=== PATIENT | female | born 1970 | race Caucasian/White ===

== ENCOUNTER 2023-12-13 21:13 | Emergency (ER) | payer MEDICAID, SELFPAY ==
[2023-12-13 21:15] VITALS: BP 157/91; PULSE 74; RESP 18; TEMP 36.8; O2SAT 100; BMI 16.6
--- NOTE | 2023-12-13 21:45 | XR_ITS ---
PROCEDURE INFORMATION: Exam: XR Right Wrist Exam date and time: 12/13/2023 10:40 PM Age: 53 years old Clinical indication: Injury or trauma; Fall; Other: Pain TECHNIQUE: Imaging protocol: Radiologic exam of the right wrist. Views: 3 or more views. Total images: 3 COMPARISON: No relevant prior studies available. FINDINGS: Bones/joints: Mild osteopenia. No acute fracture or joint dislocation. Carpal alignment is well maintained. Mild degenerative change 1st carpometacarpal joint. Mild narrowing radiocarpal joint. Mild ulnar negative variance can lead to chronic wrist instability. No concerning bone lesions. No pathologic calcifications. Soft tissues: Mild soft tissue swelling. IMPRESSION: 1. No acute osseous abnormality. 2. Mild soft tissue swelling. 3. Mild chronic findings.
--- NOTE | 2023-12-13 22:42 | ED_ITS ---
Discharge Plan Disposition Patient Disposition: Home, Self-Care Chief Complaint: Extremity Injury, Upper Referrals Follow up/Referrals: Provider,Referral, [Primary Care Provider] - See instructions Activity Restrictions/Add. Instructions Additional Instructions/Restrictions: Your x-ray today did not show any fracture. It is likely that you sprained your wrist really bad. If symptoms are persistent in 10 days please get a repeat x- ray as some tiny cracks in your bones are sometimes not apparent on the initial x-ray. For pain please take Tylenol and ibuprofen as needed. Clinical Impressions Clinical Impression: Pain of wrist after trauma, Right wrist sprain Discharge ED Provider: Shankar Harris General Adult HPI General Chief complaint: Extremity Injury, Upper Stated complaint: AO 12/13/23 1830 Fell injury right wrist Time Seen by Provider: 12/13/23 21:35 Mode of Arrival: Ambulatory Source of Information: Patient Limitations: Physical Limitations Description of Symptoms (Recalled from ER Triage Doc. by RN): Patient presented to the ED for right wrist pain related to fall. Patient states she was getting out the truck and fell backwards and caught herself with her hand/wrist. Patient can move fingers and does not c/o tingling or decreased sensation; patient has pain shooting up her arm and rates pain 7/10. History of Present Illness HPI narrative: Patient is a 53-year-old female with no pertinent past medical history, right- handed who presents emergency department for evaluation of traumatic injury sustained in a fall. Patient tripped and suffered a mechanical fall backwards on her right hand causing severe wrist pain prior to arrival. Denies other trauma. No anticoagulants. Due to persistent symptoms she presents here for continued evaluation. Related Data Allergies Allergy/AdvReac Type Severity Reaction Status Date / Time ciprofloxacin [From Cipro] Allergy Severe Anaphylaxis Verified 12/13/23 21:44 metronidazole [From Flagyl] Allergy Severe Anaphylaxis Verified 12/13/23 21:44 [facility] Disclaimer: The information contained in this section may have been updated after the patient was seen, as this information can be updated by other users. Social History (Updated 12/13/23 @ 22:58 by Teddy Branch MD) Smoking Status: Current every day smoker alcohol intake: never current occupational status: other Travel in the last 8 weeks: None ROS Obtained: Yes Systems reviewed as appropriate & no additional complaints except as documented Physical Exam General General appearance: alert and other (Appearing in pain) Head Head exam: atraumatic and normocephalic Eye Eye exam: Present PERRL ENT ENT exam: Present mucous membranes moist Neck Neck exam: Present normal inspection Chest Chest inspection: Present normal inspection and symmetric chest wall rise Respiratory Respiratory exam: Absent respiratory distress Cardiovascular Cardiovascular exam: Present regular rate and normal rhythm Abdominal Exam Abdominal exam: Present soft Extremities Exam Extremities exam: Present other (Swelling and bruising as well as tenderness of the right wrist. Distally neurovascularly intact. Palpable right radial pulse. No tenderness over the right elbow, proximal forearm, proximal upper arm or shoulder.) Neurological Exam Neurological exam: Present alert Psychiatric Psychiatric exam: Present normal affect Skin Skin exam: Present warm and dry Medical Decision Making Kwaku Inquiry Pt receiving controlled substance: No Vital Signs: 12/13/23 21:15 Temperature 98.3 F Temperature Source Oral Pulse Rate [Left Brachial] 74 Respiratory Rate 18 Blood Pressure [Left Arm] 157/91 H Blood Pressure Mean [Left Arm] 113 02 Sat by Pulse Oximetry 100 Oxygen Delivery Method Room Air Orders (Tests/Meds): ED MEDICATIONS Discontinued Medications Generic Name Dose Route Start Last Admin Trade Name Freq PRN Reason Stop Dose Admin Acetaminophen 1,000 mg 12/13/23 22:42 12/13/23 22:44 Acetaminophen 500mg Tab PO 12/13/23 22:43 1,000 mg ONCE ONE Administration Ibuprofen 600 mg 12/13/23 22:42 12/13/23 22:58 Ibuprofen 600 Mg Tablet PO 12/13/23 22:43 Not Given ONCE ONE Oxycodone HCl 5 mg 12/13/23 22:42 12/13/23 22:44 Oxycodone 5mg Immediate Release Tablet PO 12/13/23 22:43 5 mg ONCE ONE Administration ORDERS Category Date Time Status Wrist XR right minimum 3 views [XR wrist RT min 3V] Exams 12/13/23 21:45 Completed Stat Medical Decision Narrative: In summary patient is a 53-year-old female with past medical history described above who presents emergency department for evaluation of traumatic injury sustained in a fall. Patient is hemodynamically stable nontoxic-appearing upon arrival, afebrile. Based on history and physical exam trauma survey will be conducted with plain film of the right wrist. Initial inventions include Tylenol, ibuprofen, oxycodone. X-ray informally interpreted by me, no significantly displaced fracture. Formal read shows no acute pathology. Given this patient will be given a cock up wrist splint for comfort is appropriate for discharge at this time. Critical Care Critical Care Time Critical Care Time: No
[2023-12-13] MEDS: OXYCODONE 5MG IMMEDIATE RELEASE TABLET 5 MG PO (22:44)
[2023-12-13] MEDS: ACETAMINOPHEN 500MG TAB 1000 MG PO (22:44)
--- NOTE | 2023-12-13 22:47 | PC.NURSE ---
Pt to RAD
[2023-12-13 23:11] VITALS: BP 138/78; PULSE 65; RESP 16; TEMP 36.8; O2SAT 99
--- NOTE | 2023-12-13 23:14 | PC.ADMIT ---
[email or web address] [facility] Admission Note: The patient,Sonja Rain,53 y/o, was given written information regarding hospital policies, unit procedures and contact persons. Patient's smoking status: Current every day smoker. Vital Signs - 8 hr 12/13/23 21:15 12/13/23 23:11 Temperature 98.3 F 98.2 F Pulse Rate 65 Pulse Rate [Left Brachial] 74 Respiratory Rate 18 16 Blood Pressure 138/78 Blood Pressure [Left Arm] 157/91 H 02 Sat by Pulse Oximetry 100 Oxygen Delivery Method Room Air Room Air
--- NOTE | 2023-12-13 23:14 | PC.NURSE ---
Right wrist placed in splint
== END 2023-12-13 23:17 | disposition home or self-care (01) ==
PROVIDERS: Emergency Provider Emergency Medicine
DX: S63.501A Unspecified sprain of right wrist, initial encounter (principal); M25.531 Pain in right wrist; F17.210 Nicotine dependence, cigarettes, uncomplicated; W19.XXXA Unspecified fall, initial encounter
CPT/HCPCS: 73110; 99283

== ENCOUNTER 2024-10-03 12:55 | Emergency (ER) | payer SELFPAY ==
--- NOTE | 2024-10-03 12:58 | ED_ITS ---
Discharge Plan Disposition Patient Disposition: Home, Self-Care Condition: Good Prescriptions Prescriptions: New amoxicillin-pot clavulanate 875-125 mg tablet 1 tab PO BID Qty: 20 0RF kiydehty-qsejuhiue-IL 3.5-10,000-1 mg/mL-unit/mL-% drops,suspension 4 drp otic (ear) Q8H 5 Days Qty: 10 0RF Referrals Follow up/Referrals: Tahmina Fernandez APRN [Nurse Practitioner] - See instructions (Possible perforated right tympanic membrane) Provider,Referral, [Primary Care Provider] - See instructions Activity Restrictions/Add. Instructions Additional Instructions/Restrictions: Please start utilizing the eardrops and taking the antibiotic when you get them today. Please call tomorrow and schedule your follow-up with ear nose and throat for possible perforated right eardrum. I recommend taking Tylenol alternating with Motrin every 4 hours for pain and symptomatic treatment. If you have any continued new or worsening signs or symptoms follow-up with your PCP return to the ER as needed. Clinical Impressions Clinical Impression: Acute otitis media of right ear with perforated tympanic membrane Otitis externa Qualifiers: Otitis externa type: unspecified type Chronicity: acute Laterality: right Qualified Code(s): H60.501 - Unspecified acute noninfective otitis externa, right ear Otitis media of left ear Qualifiers: Chronicity: acute Recurrence: non-recurrent Spontaneous tympanic membrane rupture: without spontaneous rupture Print Language Print Language: Yoruba Discharge ED Provider: Ian Bhandari General Adult HPI <MEGAN Garzon - Last Filed: 10/03/24 13:41> General Chief complaint: Ear Stated complaint: ear pain, bloody drainage in rt ear Time Seen by Provider: 10/03/24 12:58 History of Present Illness HPI narrative: Patient presents for bilateral ear pain sore throat and drainage from the right EAC. Patient reports that her throats been sore since Friday and she did have a brief episode of sharp pain in the right ear but since it is not hurt. The left continues to hurt. However when she woke up this morning she noticed drainage on her pillow and presented to the ER for evaluation. She denies any fever chills hemoptysis hematochezia melena nausea vomiting diarrhea. Patient is status post tonsillectomy Related Data Previous Rx's ?Medication ?Instructions ?Recorded amoxicillin 875 mg-potassium 1 tab PO BID #20 tabs 10/03/24 clavulanate 125 mg tablet uwykxmph-fduucdacp-spmcsuyhu 3.5 4 drp otic (ear) Q8H 5 days #10 mL 10/03/24 mg-10,000 unit/mL-1 % ear drops,susp Allergies Allergy/AdvReac Type Severity Reaction Status Date / Time ciprofloxacin (From Cipro) Allergy Severe Anaphylaxis Verified 12/13/23 21:44 metronidazole (From Flagyl) Allergy Severe Anaphylaxis Verified 12/13/23 21:44 PFSH <MEGAN Garzon - Last Filed: 10/03/24 13:41> [facility], [facility] Disclaimer: The information contained in this section may have been updated after the patient was seen, as this information can be updated by other users. Social History (Updated 12/13/23 @ 22:58 by Teddy Branch MD) Smoking Status: Current every day smoker alcohol intake: never current occupational status: other Travel in the last 8 weeks: None Have you lived/traveled outside [place] in past 30 days?: No Contact w/someone who lives/traveled outside [place] past 30 days?: No Exposure to someone with infectious disease in past 14 days?: No Do you have a fever (greater than 100.4 F or 38 C)?: No Have you tested positive for COVID-19: No Exposed to someone with COVID-19 in past 14 days?: No Do you have a sore throat?: No Do you have a cough?: No Do you have any weakness?: No Do you have any diarrhea?: No Are you experiencing any unusual bleeding?: Yes Do you have any muscle aches/pain?: No Do you have any abdominal pain?: No Are you experiencing loss of taste or smell?: No <MEGAN Garzon - Last Filed: 10/03/24 13:41> ROS Obtained: Yes Systems reviewed as appropriate & no additional complaints except as documented Physical Exam <MEGAN Garzon - Last Filed: 10/03/24 13:41> General General appearance: alert and in no apparent distress Respiratory Respiratory exam: Present normal lung sounds bilaterally Cardiovascular Cardiovascular exam: Present regular rate Neurological Exam Neurological exam: Present alert and oriented X3 Medical Decision Making <MEGAN Garzon - Last Filed: 10/03/24 13:41> Medical Records Medical records reviewed: Yes I reviewed the patient's medical records. Screening: Per USPSTF and CDC recommendations, given the prevalence of disease in our region, it is our hospital?s policy to screen for HIV and viral Hepatitis for all patients aged 18 and over and those with ongoing risk factors. Kwaku Inquiry Pt receiving controlled substance: No Vital Signs: 10/03/24 13:02 10/03/24 13:41 Temperature 98.5 F 98.5 F Temperature Source Oral Pulse Rate 87 Pulse Rate [Right] 96 H Respiratory Rate 18 16 Blood Pressure 151/87 H Blood Pressure [Right Arm] 151/87 H Blood Pressure Mean [Right Arm] 108 Blood Pressure Source [Right Arm] Automatic Cuff Blood Pressure Position [Right Arm] Sitting 02 Sat by Pulse Oximetry 95 Oxygen Delivery Method Room Air Lab Data Lab results reviewed: Yes I reviewed the patient's lab results. Lab Results 10/03/24 13:01: Group A Strep Rapid Negative Orders (Tests/Meds): ORDERS Category Date Time Status Strep Scrn Group A (Rapid) Stat Lab 10/03/24 13:01 Completed Strep Screen Confirmation Stat Micro 10/03/24 13:01 Received Medical Decision Narrative: In summary patient is a 4-year-old female who presents to the emergency department for evaluation of sore throat bilateral ear pain and drainage from the right ear. Patient is hemodynamically stable upon arrival, febrile. Difficult exam is remarkable for a bulging right tympanic movements erythematous as well normal EAC, the right EAC is wet with drainage and the tympanic is very erythematous however I am not unable to appreciate the entirety of the tympanic membrane due to the swelling in the external auditory canal. The posterior pharynx is erythematous due to tach what appears to be some exudate but she also has bilateral anterior cervical lymphadenopathy. Presents clinical bilateral to the bases without adventitious sounds. Differential diagnosis includes strep pharyngitis versus suppurative otitis media versus otitis externa versus perforated tympanic brain on the right. Initial workup will be conducted with strep swab. Initial interventions are deferred as patient is already taken Tylenol Motrin prior to arrival. Initial workup reviewed by me shows her strep screens negative. The possibility of a perforated tympanic membrane and bilateral otitis media patient will be discharged on both Augmentin and Cortisporin HC suspension. She is advised continue taking Tylenol Motrin for symptomatic and supportive care. I have referred her to ear nose and throat for ongoing follow-up and management of her possible right tympanic membrane perforation. Patient verbalized understanding and agreement. <Ian Bhandari MD - Last Filed: 10/03/24 14:10> Vital Signs: 10/03/24 13:02 10/03/24 13:41 Temperature 98.5 F 98.5 F Temperature Source Oral Pulse Rate 87 Pulse Rate [Right] 96 H Respiratory Rate 18 16 Blood Pressure 151/87 H Blood Pressure [Right Arm] 151/87 H Blood Pressure Mean [Right Arm] 108 Blood Pressure Source [Right Arm] Automatic Cuff Blood Pressure Position [Right Arm] Sitting 02 Sat by Pulse Oximetry 95 Oxygen Delivery Method Room Air Lab Data Lab Results 10/03/24 13:01: Group A Strep Rapid Negative Orders (Tests/Meds): ORDERS Category Date Time Status Strep Scrn Group A (Rapid) Stat Lab 10/03/24 13:01 Completed Strep Screen Confirmation Stat Micro 10/03/24 13:01 Received Medical Decision Narrative: In summary patient is a 4-year-old female who presents to the emergency department for evaluation of sore throat bilateral ear pain and drainage from the right ear. Patient is hemodynamically stable upon arrival, febrile. Difficult exam is remarkable for a bulging right tympanic movements erythematous as well normal EAC, the right EAC is wet with drainage and the tympanic is very erythematous however I am not unable to appreciate the entirety of the tympanic membrane due to the swelling in the external auditory canal. The posterior pharynx is erythematous due to tach what appears to be some exudate but she also has bilateral anterior cervical lymphadenopathy. Presents clinical bilateral to the bases without adventitious sounds. Differential diagnosis includes strep pharyngitis versus suppurative otitis media versus otitis externa versus perforated tympanic brain on the right. Initial workup will be conducted with strep swab. Initial interventions are deferred as patient is already taken Tylenol Motrin prior to arrival. Initial workup reviewed by me shows her strep screens negative. The possibility of a perforated tympanic membrane and bilateral otitis media patient will be discharged on both Augmentin and Cortisporin HC suspension. She is advised continue taking Tylenol Motrin for symptomatic and supportive care. I have referred her to ear nose and throat for ongoing follow-up and management of her possible right tympanic membrane pe rforation. Patient verbalized understanding and agreement. LARS attestation I was consulted by the LARS, and we discussed the complexity of problems being addressed. I approved the treatment and management plan for this patient's care in the emergency department, thus performing a substantial portion of the medical decision making. I examined the patient at bedside and agree with the diagnosis of otitis externa, possible right sided TM perforation and suppurative left-sided otitis media. Ian Bhandari MD Critical Care <MEGAN Garzon - Last Filed: 10/03/24 13:41> Critical Care Time Critical Care Time: No
[2024-10-03 13:02] VITALS: BP 151/87; PULSE 96; RESP 18; TEMP 36.9; O2SAT 95; BMI 20.5
[2024-10-03 13:31] LABS: Strep Scrn Group A (Rapid) Negative (Negative)
[2024-10-03 13:41] VITALS: BP 151/87; PULSE 87; RESP 16; TEMP 36.9; O2SAT 99
== END 2024-10-03 13:44 | disposition home or self-care (01) ==
PROVIDERS: Physician Assistant; Emergency Provider Student in an Organized Health Care Education/Training Program
DX: H66.93 Otitis media, unspecified, bilateral (principal); H72.91 Unspecified perforation of tympanic membrane, right ear; H60.501 Unspecified acute noninfective otitis externa, right ear
CPT/HCPCS: 87430; 99283